=== PATIENT | female | born 2005 | race Caucasian/White ===

== ENCOUNTER 2024-12-21 00:26 | Emergency (ER) | payer OTHER ==
[~2024-12-21] VITALS: Ht 167.6 cm; Wt 64.0 kg
[2024-12-21 00:29] VITALS: O2SAT 98
[2024-12-21] MEDS ORDERED: LIDO700A30 TP (01:03)
[2024-12-21] MEDS ORDERED: IBUP-2029 MT (01:03)
[2024-12-21] MEDS ORDERED: METH-653 MT (01:03)
[2024-12-21 01:54] VITALS: TEMP 36.9; O2SAT 97
[2024-12-21] MEDS: METHOCARBAMOL 500MG TABLET PO ONE (01:56)
[2024-12-21 01:57] VITALS: BP 115/73; PULSE 74; RESP 18
[2024-12-21] MEDS: KETOROLAC 30MG/ML VIAL IM ONE (01:57)
== END 2024-12-21 02:08 | disposition home or self-care (01) ==
LOC: ER 00:26
DX: S33.5XXA Sprain of ligaments of lumbar spine, initial encounter (principal); Z79.899 Other long term (current) drug therapy; V49.40XA Driver injured in collision with unspecified motor vehicles in traffic accident, initial encounter; Y93.89 Activity, other specified; Y92.410 Unspecified street and highway as the place of occurrence of the external cause; Y99.8 Other external cause status
CPT/HCPCS: 99283; 96372; J1885